=== PATIENT | female | born 1965 | race Caucasian/White ===

== ENCOUNTER 2017-08-29 20:07 | Emergency (ER) | payer SELFPAY ==
[2017-08-29 20:29] VITALS: BP 104/64; PULSE 90; TEMP 97.8; BMI 24.0
--- NOTE | 2017-08-29 20:48 | PDOC ---
History of Present Illness - General Chief Complaint: Pain Stated Complaint: PAIN Time Seen by Provider: 08/29/17 20:42 - History of Present Illness Initial Comments: 51-year-old female free of comorbidities presents for evaluation of atraumatic right knee pain 5 days. She points to the medial aspect of the right knee as the area of her discomfort she describes her pain as sharp exacerbated with motion relieved with rest and free of radiation 08/29/17 20:45 Past History - Past Medical History Allergies/Adverse Reactions: Allergies Allergy/AdvReac Type Severity Reaction Status Date / Time No Known Allergies Allergy Verified 08/29/17 20:18 COPD: No Other medical history: Pt denies - Suicide/Smoking/Psychosocial Hx Smoking History: Never smoked Have you smoked in the past 12 months: No Information on smoking cessation initiated: No Hx Alcohol Use: No Drug/Substance Use Hx: No Substance Use Type: None Review of Systems - Review of Systems Musculoskeletal: Yes: See HPI, Joint Pain All Other Systems: Reviewed and Negative *Physical Exam - Vital Signs Last Vital Signs Temp Pulse Resp BP Pulse Ox 97.8 F 90 20 104/64 98 08/29/17 20:19 08/29/17 20:19 08/29/17 20:19 08/29/17 20:19 08/29/17 20:19 - Physical Exam Comments: Right knee skin color and temperature are normal there is no intra-articular effusion range of motion 0-30 beyond that causes pain. She has medial joint line tenderness mild lateral joint line tenderness no evidence of instability thigh and calf is soft and nontender she has full hip and ankle range of motion she has no gross sensorimotor deficits she's neurovascularly intact. 08/29/17 20:46 Medical Decision Making - Medical Decision Making Most likely a degenerative meniscal tear I'll have her follow-up with orthopedic surgery for further evaluation and treatment options. 08/29/17 20:47 *DC/Admit/Observation/Transfer Diagnosis at time of Disposition: Knee pain - Discharge Dispostion Disposition: HOME Condition at time of disposition: Stable Decision to Admit order: No - Referrals Referrals: Tyler Marino MD [Staff Physician] - - Patient Instructions Additional Instructions: Return to the emergency room should her symptoms worsen or go unresolved. He may weight-bear as tolerated with use of crutches. Continue with the Motrin and Tylenol for pain. Follow-up with orthopedic surgery in next 1-2 days for further evaluation and treatment options. - Post Discharge Activity
== END 2017-08-29 20:53 | disposition home or self-care (01) ==
LOC: JERFT 20:07
DX: M25.561 Pain in right knee (principal)
CPT/HCPCS: 99281-25

== ENCOUNTER 2019-01-31 14:52 | Emergency (ER) | payer SELFPAY ==
--- NOTE | 2019-01-31 14:56 | PDOC ---
Rapid Medical Evaluation Time Seen by Provider: 01/31/19 14:54 Medical Evaluation: Allergies Allergy/AdvReac Type Severity Reaction Status Date / Time No Known Allergies Allergy Verified 08/29/17 20:18 01/31/19 14:54 HPI: Cough and sore throat x2 weeks PE: No distress ORDERS: Nothing Discharge Disposition - Diagnosis Viral URI with cough - Referrals - Patient Instructions - Post Discharge Activity
[2019-01-31 14:57] VITALS: BP 133/58; PULSE 85; TEMP 98.5; BMI 23.3
--- NOTE | 2019-01-31 15:09 | PDOC ---
History of Present Illness - General Chief Complaint: Sore Throat Stated Complaint: SORE THROAT Time Seen by Provider: 01/31/19 14:54 History Source: Patient - History of Present Illness Timing/Duration: reports: other Associated Symptoms: reports: cough, sore throat Past History - Past Medical History Allergies/Adverse Reactions: Allergies Allergy/AdvReac Type Severity Reaction Status Date / Time No Known Allergies Allergy Verified 01/31/19 14:57 Home Medications: Ambulatory Orders NK [No Known Home Medication] 08/29/17 COPD: No - Psycho Social/Smoking Cessation Hx Smoking History: Never smoked Have you smoked in the past 12 months: No Hx Alcohol Use: No Drug/Substance Use Hx: No Substance Use Type: None Review of Systems - Review of Systems Constitutional: No: Chills, Fever HEENTM: Yes: Throat Pain. No: Ear Pain Respiratory: Yes: Cough. No: Shortness of Breath, Wheezing, Hemoptysis Cardiac (ROS): No: Chest Pain *Physical Exam - Vital Signs Last Vital Signs Temp Pulse Resp BP Pulse Ox 98.5 F 85 18 133/58 L 99 01/31/19 14:54 01/31/19 14:54 01/31/19 14:54 01/31/19 14:54 01/31/19 14:54 - Physical Exam General Appearance: Yes: Appropriately Dressed. No: Apparent Distress HEENT: positive: Normal ENT Inspection, Normal Voice, TMs Normal, Pharynx Normal. negative: Scleral Icterus (R), Scleral Icterus (L) Neck: positive: Supple. negative: Lymphadenopathy (R), Lymphadenopathy (L) Respiratory/Chest: positive: Lungs Clear, Normal Breath Sounds. negative: Respiratory Distress Cardiovascular: positive: Regular Rate, S1, S2 Integumentary: positive: Dry, Warm Neurologic: positive: Fully Oriented, Alert, Normal Mood/Affect Medical Decision Making - Medical Decision Making 01/31/19 15:08 53-year-old female no significant history here with mostly nonproductive cough and sore throat x2 weeks. No hemoptysis, shortness of breath, wheezing, chest pain, fever or chills. No tobacco use. No history of pneumonia. Pt well- appearing and stable with normal exam. Most likely viral. Dc with supportive treatment Discharge - Discharge Information Problems reviewed: Yes Clinical Impression/Diagnosis: Viral URI with cough Condition: Good Disposition: HOME - Follow up/Referral - Patient Discharge Instructions Patient Printed Discharge Instructions: DI for Viral Upper Respiratory Infection -- Adult Additional Instructions: The cause of your symptoms might be viral as there is no sign of infection on your exam. Take [id number] medication and follow-up with your PMD as needed - Post Discharge Activity
== END 2019-01-31 15:22 | disposition home or self-care (01) ==
LOC: JERFT 14:52
DX: J06.9 Acute upper respiratory infection, unspecified (principal)
CPT/HCPCS: 99281-25

== ENCOUNTER 2021-10-11 12:13 | Emergency (ER) | payer OTHER ==
[2021-10-11 12:31] VITALS: BP 116/66; PULSE 75; RESP 18; TEMP 98.4; BMI 22.3
[2021-10-11] MEDS ORDERED: IBUPROFEN 600 MG TABLET (FP) PO ONE ×2 (12:47→12:53)
== END 2021-10-11 14:22 | disposition home or self-care (01) ==
LOC: FER 12:13
DX: S69.92XA Unspecified injury of left wrist, hand and finger(s), initial encounter (principal); W21.02XA Struck by soccer ball, initial encounter
CPT/HCPCS: 73090-TC-LT-FY; 73110-TC-LT-FY; 73130-TC-LT-FY; 99283-25

== ENCOUNTER 2022-01-14 19:59 | Emergency (ER) | payer OTHER ==
[2022-01-14 20:24] VITALS: BP 140/73; PULSE 89; RESP 16; TEMP 98.9; BMI 22.3
== END 2022-01-14 20:26 | disposition home or self-care (01) ==
LOC: FER 19:59
DX: B34.1 Enterovirus infection, unspecified (principal)
CPT/HCPCS: 99283-25

== ENCOUNTER 2022-02-23 10:23 | Emergency (ER) | payer OTHER ==
[2022-02-23 10:31] VITALS: BP 106/57; PULSE 82; RESP 18; TEMP 98.8; BMI 23.0
[2022-02-23] MEDS ORDERED: KETOROLAC TROMETHAMINE 60 MG/2 ML VIAL IM ONE (11:01)
[2022-02-23] MEDS ORDERED: KETOROLAC TROMETHAMINE 60 MG/2 ML VIAL ONE (11:05)
== END 2022-02-23 11:25 | disposition home or self-care (01) ==
LOC: FER 10:23
PROC: 3E023GC Introduction of Other Therapeutic Substance into Muscle, Percutaneous Approach (ICD-10-PCS; principal; 2022-02-23)
DX: M54.50 Low back pain, unspecified (principal)
CPT/HCPCS: 99284-25

== ENCOUNTER 2023-06-03 15:11 | Emergency (ER) | payer OTHER ==
[2023-06-03 15:18] VITALS: BP 120/75; PULSE 85; RESP 18; TEMP 98; BMI 23.9
[2023-06-03] MEDS ORDERED: IBUPROFEN 600 MG TABLET (FP) PO ONE (16:00)
[2023-06-03] MEDS ORDERED: ACETAMINOPHEN 500 MG TABLET (FP) ONE (16:00)
[2023-06-03] MEDS ORDERED: LIDOCAINE 4% PATCH TP ONE ×2 (16:00→16:02)
[2023-06-03] MEDS: LIDOCAINE 4% PATCH TP ONE (16:06)
[2023-06-03] MEDS: ACETAMINOPHEN 500 MG TABLET (FP) PO ONE (16:06)
[2023-06-03] MEDS: IBUPROFEN 600 MG TABLET (FP) PO ONE (16:07)
[2023-06-03] MEDS ORDERED: LIDOCAINE PATCH REMOVAL MC SCH (22:00)
== END 2023-06-03 16:29 | disposition home or self-care (01) ==
LOC: JERFT 15:11
DX: M25.512 Pain in left shoulder (principal); M79.10 Myalgia, unspecified site; W01.198A Fall on same level from slipping, tripping and stumbling with subsequent striking against other object, initial encounter
CPT/HCPCS: 99283-25

== ENCOUNTER 2023-06-04 13:13 | Emergency (ER) | payer OTHER ==
[2023-06-04 13:33] VITALS: BP 116/70; PULSE 76; RESP 20; TEMP 97.8; BMI 23.8
[2023-06-04] MEDS ORDERED: LIDOCAINE 5% TOPICAL PATCH ONE (14:11)
[2023-06-04] MEDS ORDERED: IBUPROFEN 400 MG TABLET (FP) PO ONE (14:11)
[2023-06-04] MEDS: LIDOCAINE 5% TOPICAL PATCH TP ONE (14:17)
[2023-06-04] MEDS: IBUPROFEN 400 MG TABLET (FP) PO PRN (14:20)
[2023-06-04] MEDS ORDERED: LIDOCAINE PATCH REMOVAL MC SCH (22:00)
== END 2023-06-04 14:21 | disposition home or self-care (01) ==
LOC: FER 13:13
DX: M54.50 Low back pain, unspecified (principal); W01.198A Fall on same level from slipping, tripping and stumbling with subsequent striking against other object, initial encounter
CPT/HCPCS: 99283-25

== ENCOUNTER 2023-09-02 21:22 | Emergency (ER) | payer OTHER ==
[2023-09-02 21:26] VITALS: BP 114/70; PULSE 79; RESP 20; TEMP 98.1; BMI 23.8
[2023-09-02] MEDS ORDERED: ACETAMINOPHEN 500 MG TABLET (FP) ONE (21:53)
[2023-09-02] MEDS: ACETAMINOPHEN 500 MG TABLET (FP) PO ONE (21:55)
[2023-09-02] MEDS ORDERED: DIPHTH,PERTUSS(ACELL),TET 0.5 ML DISP.SYRIN IM ONE (22:17)
[2023-09-02] MEDS: DIPHTH,PERTUSS(ACELL),TET 0.5 ML DISP.SYRIN IM ONE (22:19)
== END 2023-09-02 22:22 | disposition home or self-care (01) ==
LOC: JERFT 21:22
PROC: 3E0234Z Introduction of Serum, Toxoid and Vaccine into Muscle, Percutaneous Approach (ICD-10-PCS; principal; 2023-09-02)
DX: S91.115A Laceration without foreign body of left lesser toe(s) without damage to nail, initial encounter (principal); W20.8XXA Other cause of strike by thrown, projected or falling object, initial encounter; Z23 Encounter for immunization
CPT/HCPCS: 73630-TC-LT; 90471; 90715; 99284-25